=== PATIENT | male | born 1960 | race Caucasian/White ===

== ENCOUNTER 2017-01-28 20:23 | Emergency (ER) | payer SELFPAY | END 2017-01-28 21:04 | disposition other institution (70) | LOC: ED 20:23 | DX: Z02.89 Encounter for other administrative examinations (principal) ==

== ENCOUNTER 2017-01-28 20:23 | Emergency (ER) | payer OTHER ==
[~2017-01-28] VITALS: Ht 182.9 cm; Wt 108.9 kg
[2017-01-28 21:04] VITALS: BP 165/87
== END 2017-01-28 21:04 | disposition home or self-care (01) ==
LOC: ED 20:23
DX: R07.9 Chest pain, unspecified (principal); Z88.5 Allergy status to narcotic agent
CPT/HCPCS: 83880